=== PATIENT | female | born 1980 | race Caucasian/White ===

== ENCOUNTER 2021-01-19 20:53 | Emergency (ER) | payer OTHER ==
[2021-01-19 22:19] LABS: RED BLOOD COUNT 4.48 M/UL (4.00-5.10); WHITE BLOOD COUNT 11.1 K/UL (4.5-11.0)
[2021-01-19 22:41] LABS: BUN/CREATININE RATIO 10 (0-10)
[2021-01-20] MEDS ORDERED: CEPHALEXIN500 MG PO (01:26)
[2021-03-27] MEDS ORDERED: ZYRTEC10 MG PO (11:02)
[2021-03-27] MEDS ORDERED: IRON (11:02)
== END 2021-01-20 02:10 | disposition home or self-care (01) ==
LOC: ER1 20:53
PROVIDERS: Physician Assistant Medical
DX: R55 Syncope and collapse (principal); N39.0 Urinary tract infection, site not specified; Z90.49 Acquired absence of other specified parts of digestive tract
CPT/HCPCS: 70450; 71045; 80053; 81001; 82550; 82553; 83874; 84484; 85025; 85379; 93005; 96372; 99284; J0696

== ENCOUNTER → 2021-03-27 | Outpatient (CLI) | payer OTHER ==
[~2021-03-27] MED LIST: CEPHALEXIN500 MG PO; DITROPAN 5 MG TA5 MG PO; DOCUSATE SODIU250 MG PO; HYDROCODONE-AC1 EACH PO; IBUPROFEN600 MG PO; IRON; ZYRTEC10 MG PO
[2021-03-27 11:28] LABS: RED BLOOD COUNT 4.82 M/UL (4.00-5.10); WHITE BLOOD COUNT 5.8 K/UL (4.5-11.0)
== END ==
LOC: OPSV2 10:00
PROVIDERS: Obstetrics & Gynecology
DX: Z01.812 Encounter for preprocedural laboratory examination (principal); N92.0 Excessive and frequent menstruation with regular cycle
CPT/HCPCS: 36415; 81001; 85025

== ENCOUNTER → 2021-04-02 | Day surgery (SDC) | payer OTHER | END | disposition home or self-care (01) | LOC: OR 07:46 | DX: N85.8 Other specified noninflammatory disorders of uterus (principal); N39.3 Stress incontinence (female) (male); N92.0 Excessive and frequent menstruation with regular cycle; E66.9 Obesity, unspecified; D64.9 Anemia, unspecified; Z79.899 Other long term (current) drug therapy; Z20.822 Contact with and (suspected) exposure to COVID-19; Z87.01 Personal history of pneumonia (recurrent) | CPT/HCPCS: C1769; C1771; J0690; J1100; J1885; J2001; J2250; J2405; J2704; J3010; J7030; J7120 ==

== ENCOUNTER → 2021-04-09 | Outpatient (CLI) | payer OTHER | LOC: ECHO 12:42 | DX: R00.2 Palpitations (principal) | CPT/HCPCS: ECHO; 93306 ==